=== PATIENT | female | born 1970 | race Caucasian/White ===

== ENCOUNTER 2023-09-15 05:31 | Emergency (ER) | payer OTHER, SELFPAY ==
--- NOTE | ~2023-09-15 | CT_ITS ---
Non-contrast CT scan of the Abdomen and Pelvis Clinical indication: Right flank pain Technique: 2.5 mm axial scans were obtained through the abdomen and pelvis without intravenous or or al contrast. Dose reduction technique was used on this scan by utilizing automated exposure control a nd iterative reconstruction technique. The dose-length product (DLP) was 1275.07 mGy-cm. Findings: Images through the lung bases reveal no abnormalities. There is a 4 mm distal right ureteral stone with moderate right hydroureteronephrosis. No left renal or left ureteral stone. No left hydronephrosis. The liver, spleen, pancreas, gallbladder, and adrenals appear normal. There is no aortic aneurysm. There is no evidence of bowel obstruction. Images through the pelvis were performed. There is no evidence of ascites or lymphadenopathy. Urinary bladder unremarkable. No adnexal mass seen. Bilateral L5 pars interarticularis defects are present, with minimal grade 1 anterolisthesis of L5 over S1. Impression: 4 mm distal right ureteral stone with moderate right hydroureteronephrosis. Reviewed, dictated and finalized at [facility]. Impression: 4 mm distal right ureteral stone with moderate right hydroureteronephrosis.
[2023-09-15 05:45] VITALS: BP 141/51; PULSE 78; RESP 18; O2SAT 100
--- NOTE | 2023-09-15 05:50 | ED.GENADULT ---
HPI - General Adult General Chief complaint: Back Pain/Injury <Damian Bruno MD - Last Filed: 09/15/23 06:53> Stated complaint: right flank pain <Damian Bruno MD - Last Filed: 09/15/23 06:53> Time Seen by Provider: 09/15/23 05:37 <Damian Bruno MD - Last Filed: 09/15/23 06:53> History of Present Illness HPI narrative: Patient is a 53-year-old female who presents emergency department chief complaint of right flank pain. The patient reports that she has prior history of kidney stones and has family history of kidney stones patient reports this evening started having sharp type pain patient reports that has not improved anything was worsened by anything. The patient reports not believe the pain under control. <Damian Bruno MD - Last Filed: 09/15/23 06:53> Patient is a 53-year-old female who presents to the emergency department chief complaint of right flank pain. The patient reports that she has prior history of kidney stones and has family history of kidney stones patient reports this evening started having sharp type pain patient reports that has not improved anything was worsened by anything. The patient reports not believe the pain under control. <Mark Recio MD - Last Filed: 09/15/23 10:40> Related Data Allergies/adverse reactions: Allergies Allergy/AdvReac Type Severity Reaction Status Date / Time No Known Allergies Allergy Verified 09/15/23 05:47 <Damian Bruno MD - Last Filed: 09/15/23 06:53> Review of Systems Review of Systems: A 10 system review of systems was completed on the patient and is negative except for what is stated in the HPI. Nursing and ancillary documentation was reviewed. <Damian Bruno MD - Last Filed: 09/15/23 06:53> Exam Narrative: GENERAL: Well-appearing, well-nourished, and in moderate acute pain distress. HEAD: Normocephalic, atraumatic. EYES: PERRLA and EOMI. ENT: Nares clear, no rhinorrhea or epistaxis. Mucous membranes moist. NECK: Supple. CHEST: Clear to auscultation. No respiratory distress. HEART: Regular rate and rhythm. No murmur heard. Normal peripheral pulses. ABDOMEN: Soft, nontender, nondistended, normal active bowel sounds. EXTREMITIES: Normal range of motion. No edema. SKIN: Warm, dry, no rash. NEURO: No focal deficits. Alert and oriented x3. PSYCH: Normal mood and affect. <Damian Bruno MD - Last Filed: 09/15/23 06:53> Course Reevaluation(s) Reevaluation #1: Patient care was signed out to me by Dr. Bruno with CT pending. Patient is afebrile with a minor leukocytosis of 10.5 and a stable hemoglobin. Patient has normal kidney function. UA did have some hematuria but no underlying evidence of infection. CT scan did show 4 mm distal right ureteral stone with moderate right hydroureteronephrosis. Patient was updated on the results of the workup and plan for treatment for home and follow-up with Urology. <Mark Recio MD - Last Filed: 09/15/23 10:40> Vital Signs Vital signs: Vital Signs Pulse Rate 78 09/15/23 05:45 Respiratory Rate 18 09/15/23 05:45 Blood Pressure 141/51 H 09/15/23 05:45 Pulse Oximetry 100 09/15/23 05:45 Pulse Rate 84 09/15/23 08:43 Respiratory Rate 16 09/15/23 08:43 Blood Pressure 138/88 09/15/23 08:43 Pulse Oximetry 99 09/15/23 08:43 <Damian Bruno MD - Last Filed: 09/15/23 06:53> Vital Signs Pulse Rate 78 09/15/23 05:45 Respiratory Rate 18 09/15/23 05:45 Blood Pressure 141/51 H 09/15/23 05:45 Pulse Oximetry 100 09/15/23 05:45 Pulse Rate 84 09/15/23 08:43 Respiratory Rate 16 09/15/23 08:43 Blood Pressure 138/88 09/15/23 08:43 Pulse Oximetry 99 09/15/23 08:43 <Mark Recio MD - Last Filed: 09/15/23 10:40> Medical Decision Making MDM Narrative Medical decision making narrative: Differential diagnosis
[2023-09-15] MEDS: SODIUM CHLORIDE 0.9% IV 1,000 ML 999 ML IV CONT (05:57)
[2023-09-15] MEDS: MORPHINE SULFATE (*CRX) 4 MG/ML INJ IV PUSH (05:57)
[2023-09-15] MEDS: ONDANSETRON INJ 4 MG/2 ML VIAL IV PUSH (05:58)
[2023-09-15 06:13] LABS: Basophils Absolute Auto 0.1 K/mm3 (0.0-0.1); Basophils Percent Auto 0.5 % (0.2-1.2); Eosinophils Percent Auto 0.4 % (0-4.4); Hematocrit 39.8 % (37.0-47.0); Immature Granulocyte Absolute 0.08 K/mm3 (0.00-0.031); Immature Granulocyte Percent A 0.8 % (0-0.5); Lymphocytes Absolute Auto 1.21 K/mm3 (0.9-3.2); Lymphocytes Percent Auto 11.5 % (18.3-44.2); Mean Corpuscular HGB Conc 32.7 g/dl (32-36); Mean Corpuscular Hemoglobin 30.4 pg (26-34); Monocytes Absolute Auto 0.5 K/mm3 (0.1-0.6); Monocytes Percent Auto 4.7 % (2.6-8.5); Neutrophils Absolute Auto 8.7 K/mm3 (1.3-6.7); Neutrophils Percent Auto 82.1 % (45.5-73.1); Platelet Count Result 305 k/mm3 (150-375); Red Blood Count 4.28 M/mm3 (4.2-5.4); Red Cell Distribution Width 13.2 % (11.5-14.5); White Blood Count 10.5 K/mm3 (4.5-10.0)
[2023-09-15 06:19] LABS: Appearance Urine Clear (Clear); Bacteria Urine None Seen /hpf; Bilirubin Urine Negative (Negative); Blood Urine 1+ (Negative); Color Urine Yellow (Yellow); Glucose Urine UA Negative (Negative); Ketones Urine Negative (Negative); Leukocyte Esterase Ur Negative LEU/UL (Negative); Nitrate Urine Negative (Negative); Non Pathogenic Casts 0-2; Protein Urine Trace mg/dL (Negative); Specific Grav Ur 1.017 (1.001-1.035); Squamous Epithelial Cell Urine None Seen /hpf (Few); Urobilinogen Urine 0.2 mg/dL (<2.0); WBC Urine 0-5 /hpf (0-3)
[2023-09-15 06:25] LABS: Alanine Aminotransferase 36 U/L (6-35); Albumin Level 4.4 g/dL (3.5-5.1); Alkaline Phosphatase 91 U/L (38-126); Anion Gap 9 mmol/L (8-16); Aspartate Amino Transferase 35 U/L (14-36); Bilirubin,Total 0.4 mg/dL (0.2-1.3); Blood Urea Nitrogen 14 mg/dL (7-17); Calcium 9.4 mg/dL (8.4-10.2); Carbon Dioxide 25 mmol/L (22-30); Chloride 105 mmol/L (98-107); Estimated CRCL calculation 83 ml/min; Estimated Glomerular Filt Rate > 60; Glucose 146 mg/dL (65-110); Potassium 3.8 mmol/L (3.4-5.0); Sodium 139 mmol/L (137-145)
[2023-09-15 06:27] LABS: Add Urine Microscopic? YES
[2023-09-15] MEDS: KETOROLAC 15 MG/ML VIAL (*BKC) IV PUSH (08:01)
[2023-09-15] MEDS: TAMSULOSIN HCL 0.4 MG CAPSULE PO (08:33)
[2023-09-15 08:43] VITALS: BP 138/88; PULSE 84; RESP 16; O2SAT 99
== END 2023-09-15 08:50 | disposition home or self-care (01) ==
PROVIDERS: Emergency Provider Emergency Medicine
DX: N13.2 Hydronephrosis with renal and ureteral calculous obstruction (principal)
CPT/HCPCS: 36415; 74176; 80053; 81025; 85025; 96361; 96374; 96375; 99284; A9270; J1885; J2270; J2405; J7030